=== PATIENT | female | born 2000 | race African-American/Black ===

== ENCOUNTER 2022-12-10 22:39 | Day surgery (SDC) | payer OTHER ==
[2022-12-10 23:13] VITALS: BMI 28.5
[2022-12-10] MEDS ORDERED: hydrALAZINE 20 MG/ML VIAL SLOW IVP PRN (23:49)
== END 2022-12-11 01:42 | disposition home or self-care (01) ==
LOC: CSHLD/OP 22:39
PROVIDERS: ATTEND Family Medicine
DX: O46.92 Antepartum hemorrhage, unspecified, second trimester (principal); Z3A.26 26 weeks gestation of pregnancy
CPT/HCPCS: 76815; 99283

== ENCOUNTER 2023-02-10 13:25 | Observation (INO) | payer BC, OTHER ==
[2023-02-10 14:08] VITALS: BMI 29.0
[2023-02-10] MEDS ORDERED: hydrALAZINE 20 MG/ML VIAL SLOW IVP PRN (14:37)
[2023-02-10] MEDS ORDERED: Betamet Acet/Betamet Na Ph 30 MG/5 ML VIAL ONE (14:54)
[2023-02-10] MEDS ORDERED: Promethazine HCl 25 MG/ML VIAL IM PRN (15:06)
[2023-02-10] MEDS ORDERED: Ondansetron PF 4 MG/2 ML Vial IVP PRN (15:06)
[2023-02-10] MEDS: Betamet Acet/Betamet Na Ph 30 MG/5 ML VIAL IM SCH (15:08)
[2023-02-10] MEDS ORDERED: Methylergonovine 0.2 MG/ML VIAL IM PRN (15:12)
[2023-02-10] MEDS ORDERED: Misoprostol 200 MCG TAB PR PRN (15:12)
[2023-02-10] MEDS ORDERED: Carboprost 250 MCG/ML AMP IM PRN (15:12)
[2023-02-10] MEDS ORDERED: Diphenoxylate HCl/Atropine Tablet PO PRN (15:12)
[2023-02-10] MEDS ORDERED: Acetaminophen 500 MG TAB PO PRN (15:12)
[2023-02-10] MEDS ORDERED: Butorphanol Tartrate 1 MG/ML VIAL SLOW IVP PRN (15:12)
[2023-02-10] MEDS ORDERED: NS w/ Oxytocin 30 units 500 ML IV SCH (15:15)
[2023-02-10] MEDS ORDERED: Magnesium Sulfate 4 GM in Sodium Chloride 0.9% 250 ML 250 ML IVPB SCH (15:30)
[2023-02-10 15:32] LABS: Hemoglobin 11.8 g/dL (12.0-15.5); Mean Corpuscular HGB CONC 32.3 g/dL (32.0-36.0); Mean Corpuscular Hemoglobin 29.1 pg (27.0-33.0); Mean Corpuscular Volume 90.1 fl (81.6-98.3); Mean Platelet Volume 10.1 fl (7.4-10.4); Platelet Count 190 10x3/uL (150-450); RBC Distribution Width 14.1 % (11.5-14.5); Red Blood Cell (RBC) Count 4.05 10x6/uL (3.90-5.03); White Blood Cell (WBC) Count 8.6 10x3/uL (3.5-10.5)
[2023-02-10] MEDS: Magnesium Sulfate 20 gm/500 ml 20 GM/500 ML BAG IVPB SCH (15:51)
[2023-02-10 16:09] LABS: Bilirubin Neg (Negative); Blood, Urine 10 (Negative); Clarity Clear (Clear); Glucose, Urine (Dipstick) Normal (Negative); HBSAg Index 0.12 S/CO (0-0.99); Hep B Surf Ag - L&D Non-Reactive S/CO (NonReactive); Ketone, Urine Negative (Negative); Leukocyte Negative (Negative); Nitrite Negative (Negative); Protein, Urine (Dipstick) Negative (Neg-Trace); Syphilis Antibody Nonreactive (Nonreactive); Syphilis Antibody Index 0.05 S/CO (<1.00 Non-Reactive); Urobilinogen Normal mg/dL (Less than 2)
[2023-02-10 17:05] LABS: Bacteria/HPF Rare-Few HPF (None Seen); CAUTI Indications for Culture Pregnancy; RBC/HPF 0-3 HPF (0-3); WBC/HPF 0-3 HPF (0-3)
[2023-02-10] MEDS: AMPicillin 1 GM in Sodium Chloride 0.9% 100 ML IVPB SCH (17:05)
[2023-02-10 17:07] LABS: Urine Culture Reflex Yes Yes
[2023-02-10] MEDS ORDERED: Azithromycin 500 MG in Sodium Chloride 0.9% 250 ML 250 ML IVPB SCH (18:00)
[2023-02-11] MEDS: AMPicillin 1 GM in Sodium Chloride 0.9% 100 ML IVPB SCH ×3 (11:29→23:30)
[2023-02-11] MEDS: Betamet Acet/Betamet Na Ph 30 MG/5 ML VIAL IM SCH (15:00)
[2023-02-12] MEDS: AMPicillin 1 GM in Sodium Chloride 0.9% 100 ML IVPB SCH ×3 (06:00→11:49)
[2023-02-12] MEDS: Lactated Ringer's 1,000 ML IV SCH ×2 (07:45→07:47)
[2023-02-12] MEDS: Magnesium Sulfate 20 gm/500 ml 20 GM/500 ML BAG IVPB SCH (08:28)
[2023-02-12] MEDS ORDERED: Acetaminophen 500 MG TAB PO PRN (13:56)
[2023-02-12] MEDS: AMOXicillin 250 MG CAP PO SCH (23:34)
[2023-02-13] MEDS: AMOXicillin 250 MG CAP PO SCH ×2 (03:06→12:49)
== END 2023-02-13 15:45 | disposition home health service (06) ==
LOC: CSHLD/OP 13:25 → CSHLD 15:33 → INTOOBSV 15:33 → CSHLD 17:58
PROVIDERS: ADMIT Family Medicine; ATTEND Family Medicine
DX: O60.03 Preterm labor without delivery, third trimester (principal); O26.891 Other specified pregnancy related conditions, first trimester; R10.31 Right lower quadrant pain; H91.91 Unspecified hearing loss, right ear; Z79.899 Other long term (current) drug therapy; Z3A.33 33 weeks gestation of pregnancy
CPT/HCPCS: 36415; 51702; 81001; 85027; 86780; 86850; 86900; 86901; 87086; 87340; 87480; 87510; 87660; 96372; 96374; 96375; 96376; 99285; G0378; J0290; J0456; J0702; J2405; J3475; J3490; J7050; J7120

== ENCOUNTER 2023-02-22 07:45 | Day surgery (SDC) | payer BC, OTHER ==
[2023-02-22 08:14] VITALS: BMI 31.3
[2023-02-22] MEDS ORDERED: hydrALAZINE 20 MG/ML VIAL SLOW IVP PRN (08:28)
[2023-02-22] MEDS ORDERED: Lactated Ringer's 1,000 ML IV SCH ×2 (08:30→10:15)
[2023-02-22 10:29] LABS: Bilirubin Neg (Negative); Blood, Urine Negative (Negative); Clarity Clear (Clear); Glucose, Urine (Dipstick) Normal (Negative); Ketone, Urine Negative (Negative); Leukocyte Negative (Negative); Nitrite Negative (Negative); Protein, Urine (Dipstick) 15 mg/dl (Neg-Trace); Specific Gravity, Urine 1.015 (1.005-1.030); pH, Urine 6.5 (5.0-9.0)
[2023-02-22 10:39] LABS: Bacteria/HPF Rare-Few HPF (None Seen); CAUTI Indications for Culture Pregnancy; RBC/HPF 0-3 HPF (0-3); Squamous Epithelial 0-3 HPF (0-3); WBC/HPF 0-3 HPF (0-3)
[2023-02-22 10:42] LABS: Urine Culture Reflex Yes Yes
[2023-02-22] MEDS ORDERED: NIFEdipine 10 MG CAP ONE ×3 (13:41→14:55)
[2023-02-22] MEDS ORDERED: NIFEdipine 10 MG CAP PO SCH ×2 (15:00→15:30)
[2023-02-22] MEDS ORDERED: NIFEdipine 10 MG CAP PO PRN (15:15)
== END 2023-02-22 16:25 | disposition home health service (06) ==
LOC: CSHLD/OP 07:45
PROVIDERS: ATTEND Family Medicine
DX: O47.03 False labor before 37 completed weeks of gestation, third trimester (principal); Z79.899 Other long term (current) drug therapy; Z3A.35 35 weeks gestation of pregnancy
CPT/HCPCS: 81001; 87086; 99283

== ENCOUNTER 2023-03-06 21:33 | Day surgery (SDC) | payer BC, OTHER ==
[2023-03-06 21:58] VITALS: BMI 31.6
[2023-03-06] MEDS ORDERED: hydrALAZINE 20 MG/ML VIAL SLOW IVP PRN (23:27)
== END 2023-03-07 00:05 | disposition home or self-care (01) ==
LOC: CSHLD/OP 21:33
PROVIDERS: ATTEND Family Medicine
DX: O26.893 Other specified pregnancy related conditions, third trimester (principal); R10.2 Pelvic and perineal pain; H91.90 Unspecified hearing loss, unspecified ear; Z79.899 Other long term (current) drug therapy; O99.891 Other specified diseases and conditions complicating pregnancy; B37.31 Acute candidiasis of vulva and vagina; O98.813 Other maternal infectious and parasitic diseases complicating pregnancy, third trimester; Z3A.37 37 weeks gestation of pregnancy
CPT/HCPCS: 87480; 87510; 87660; 99283

== ENCOUNTER 2023-03-11 15:44 | Inpatient (IN) | payer BC, OTHER ==
[2023-03-11 16:11] VITALS: BMI 32.5
[2023-03-11] MEDS ORDERED: Diphenoxylate HCl/Atropine Tablet PO PRN (16:30)
[2023-03-11] MEDS ORDERED: Carboprost 250 MCG/ML AMP IM PRN (16:30)
[2023-03-11] MEDS ORDERED: NS w/ Oxytocin 30 units 500 ML IV SCH ×3 (16:30)
[2023-03-11] MEDS ORDERED: Methylergonovine 0.2 MG/ML VIAL IM PRN (16:30)
[2023-03-11] MEDS ORDERED: Misoprostol 200 MCG TAB PR PRN (16:30)
[2023-03-11] MEDS ORDERED: Tranexamic Acid 1,000 MG/10 ML VIAL IVP PRN (16:30)
[2023-03-11] MEDS ORDERED: Ibuprofen 800 MG TAB PO PRN (16:30)
[2023-03-11] MEDS ORDERED: HYDROcodone/Acetaminophen 5/325 mg Tablet PO PRN ×2 (16:30→21:53)
[2023-03-11] MEDS ORDERED: Acetaminophen 500 MG TAB PO PRN (16:30)
[2023-03-11] MEDS ORDERED: Promethazine HCl 25 MG/ML VIAL IM PRN ×2 (16:30→21:53)
[2023-03-11] MEDS ORDERED: Lidocaine 1% (PF) 30 ML VIAL SC PRN (16:30)
[2023-03-11] MEDS ORDERED: hydrALAZINE 20 MG/ML VIAL SLOW IVP PRN ×2 (16:30→21:53)
[2023-03-11] MEDS ORDERED: Lactated Ringer's 1,000 ML IV SCH (16:30)
[2023-03-11] MEDS ORDERED: Ondansetron PF 4 MG/2 ML Vial IVP PRN ×2 (16:30→21:53)
[2023-03-11] MEDS ORDERED: Butorphanol Tartrate 1 MG/ML VIAL SLOW IVP PRN (16:30)
[2023-03-11] MEDS ORDERED: fentaNYL 50 mcg/mL 1 mL Vial SLOW IVP PRN (16:52)
[2023-03-11] MEDS ORDERED: Bupivacaine 0.25% HCL 30 ML VIAL ONE (17:00)
[2023-03-11 17:03] LABS: Hemoglobin 11.6 g/dL (12.0-15.5); Mean Corpuscular Hemoglobin 29.1 pg (27.0-33.0); Mean Corpuscular Volume 88.4 fl (81.6-98.3); Mean Platelet Volume 10.4 fl (7.4-10.4); Platelet Count 216 10x3/uL (150-450); RBC Distribution Width 14.4 % (11.5-14.5); Red Blood Cell (RBC) Count 3.98 10x6/uL (3.90-5.03); White Blood Cell (WBC) Count 9.6 10x3/uL (3.5-10.5)
[2023-03-11 17:28] LABS: HBSAg Index 0.17 S/CO (0-0.99); Hep B Surf Ag - L&D Non-Reactive S/CO (NonReactive); Syphilis Antibody Nonreactive (Nonreactive); Syphilis Antibody Index 0.06 S/CO (<1.00 Non-Reactive)
[2023-03-11] MEDS ORDERED: Fentanyl 2 mcg/Bup 0.1% Cadd 100 ML ONE (18:02)
[2023-03-11] MEDS ORDERED: diphenhydrAMINE 25 MG CAP PO PRN (21:53)
[2023-03-11] MEDS ORDERED: Bisacodyl 10 MG SUPP PR PRN (21:53)
[2023-03-11] MEDS ORDERED: Milk Of Magnesia 30 ML UDCUP PO PRN (21:53)
[2023-03-11] MEDS ORDERED: Lanolin Ointment 7 GM TUBE TOP PRN (21:53)
[2023-03-11] MEDS ORDERED: Boostrix 0.5 ML (Tdap) VIAL (>/=7 yrs of age) IM ONE (21:53)
[2023-03-11] MEDS ORDERED: Docusate 100 MG CAP PO SCH (22:00)
[2023-03-11] MEDS: Ibuprofen 800 MG TAB PO SCH (22:50)
[2023-03-12] MEDS: HYDROcodone/Acetaminophen 5/325 mg Tablet PO PRN (04:40)
[2023-03-12] MEDS: Ibuprofen 800 MG TAB PO SCH ×3 (05:27→20:32)
[2023-03-12] MEDS: Ferrous Sulfate 325 MG TAB PO SCH ×2 (07:01→15:21)
[2023-03-12] MEDS: Prenatal Vitamin 1 TAB PO SCH (08:36)
[2023-03-12] MEDS: Docusate 100 MG CAP PO SCH ×2 (08:36→20:32)
[2023-03-13] MEDS: Ibuprofen 800 MG TAB PO SCH ×2 (05:25→12:59)
[2023-03-13 07:37] VITALS: BP 132/86; TEMP 99
[2023-03-13] MEDS: Prenatal Vitamin 1 TAB PO SCH (08:30)
[2023-03-13] MEDS: Docusate 100 MG CAP PO SCH (08:30)
[2023-03-13] MEDS: HYDROcodone/Acetaminophen 5/325 mg Tablet PO PRN (08:33)
[2023-03-13] MEDS: Ferrous Sulfate 325 MG TAB PO SCH (08:40)
== END 2023-03-13 17:35 | disposition home or self-care (01) | DRG 807 ==
LOC: CSHLD 15:44 → CSHPP 21:49
PROVIDERS: ADMIT Family Medicine; ATTEND Family Medicine
PROC: 10E0XZZ Delivery of Products of Conception, External Approach (ICD-10-PCS; principal; 2023-03-11)
DX: O75.89 Other specified complications of labor and delivery (principal); Z37.0 Single live birth; H91.90 Unspecified hearing loss, unspecified ear; Z3A.37 37 weeks gestation of pregnancy
CPT/HCPCS: 85027; 86780; 86850; 86900; 86901; 87340; J2590; S0020